=== PATIENT | male | born 2000 | race African-American/Black ===

== ENCOUNTER 2019-12-22 07:48 | Emergency (ER) | payer MEDICAID ==
[~2019-12-22] VITALS: Ht 170.2 cm; Wt 100.0 kg
[2019-12-22] MEDS ORDERED: SODIUM CHLORIDE 0.9% 1,000 ML IV ONE (08:13)
[2019-12-22] MEDS ORDERED: MORPHINE SULFATE 4 MG/ML CPJ (NOT FOR IM USE) IV STA (08:13)
[2019-12-22] MEDS ORDERED: ONDANSETRON HCL 4MG/2ML INJ IV STA (08:13)
[2019-12-22 08:49] LABS: BASOPHILS % 0.8 % (0.0-2.0); EOSINOPHILS % 0.7 % (0.0-5.0); HEMATOCRIT. 47.2 % (42.0-52.0); HEMOGLOBIN. 16.2 g/dL (14.0-18.0); MEAN CORPUSCULAR HEMOGLOBIN 30.5 pg (28.0-32.0); MEAN CORPUSCULAR VOLUME 88.5 fL (80.0-94.0); MEAN PLATELET VOLUME 8.6 fl (7.4-10.4); MONOCYTES % 4.7 % (2.0-8.0); NEUTROPHILS % 66.8 % (40.0-76.0); PLATELET 247 x1000/uL (130-400); RED BLOOD CELL COUNT 5.33 mill/uL (4.7-6.1); RED CELL DISTRIBUTION WIDTH 13.1 % (11.6-14.6)
[2019-12-22 08:57] LABS: CHLORIDE 104 mEq/L (98-107)
[2019-12-22 08:58] LABS: PROTHROMBIN TIME 10.9 sec (9.6-11.0)
[2019-12-22 08:59] LABS: CLARITY URINE CLEAR (CLEAR); COLOR URINE DARK YELLOW (YELLOW); KETONES URINE TRACE (NEGATIVE); LEUKOCYTE ESTERASE URINE 1+ (NEGATIVE); NITRITE URINE NEGATIVE (NEGATIVE); OCCULT BLOOD URINE NEGATIVE (NEGATIVE); PROTEIN URINE TRACE (NEGATIVE); SPECIFIC GRAVITY URINE 1.029 (1.005-1.030)
[2019-12-22] MEDS ORDERED: CEFTRIAXONE 1 G PREMIX 50 ML IV ONE (10:30)
[2019-12-22 21:00] VITALS: BP 146/82
== END 2019-12-22 21:31 | disposition short-term general hospital (02) ==
LOC: ER 08:04 → EDBEDREQSVC 10:30 → ER 21:31 → CANBEDREQ 21:37
DX: N12 Tubulo-interstitial nephritis, not specified as acute or chronic (principal)
CPT/HCPCS: 36415; 71045; 76700; 80053; 81003; 83605; 83690; 85025; 85610; 87086; 93005; 96361; 96374; 96375; 99285; J0696; J2270; J2405; J7030

== ENCOUNTER 2021-05-31 19:10 | Emergency (ER) | payer MEDICAID, OTHER ==
[~2021-05-31] VITALS: Ht 172.7 cm; Wt 88.0 kg
[2021-05-31 19:20] VITALS: BP 121/85
[2021-05-31] MEDS ORDERED: IBUPROFEN 600MG TABLET PO ONE (20:15)
[2021-05-31] MEDS ORDERED: CYCL5TAB MT (20:16)
[2021-05-31] MEDS ORDERED: IBUP-2029 MT (20:16)
== END 2021-05-31 22:03 | disposition home or self-care (01) ==
LOC: ER 19:10
DX: S50.01XA Contusion of right elbow, initial encounter (principal); S33.5XXA Sprain of ligaments of lumbar spine, initial encounter; V49.49XA Driver injured in collision with other motor vehicles in traffic accident, initial encounter; Y93.89 Activity, other specified; Y92.89 Other specified places as the place of occurrence of the external cause; Y99.8 Other external cause status
CPT/HCPCS: 99283; Z7610; 99282